=== PATIENT | male | born 1960 | race Caucasian/White ===

== ENCOUNTER → 2016-10-20 | Outpatient (CLI) | payer OTHER ==
--- NOTE | ~2016-10-20 | EKG ---
PATIENT: RK AMSSEY UNIT #: [id number] Ventricular Rate: 53 BPM Atrial Rate: 53 BPM P-R Interval: 142 ms QRS Duration: 86 ms Q-T Interval: 468 ms QTC Calculation(Bezet): 439 ms P Jewell: 52 degrees Calculated R Jewell: -46 degrees Calculated T Jewell: 37 degrees Diagnosis Line: Sinus bradycardia Diagnosis Line: Possible Left atrial enlargement Diagnosis Line: Left axis deviation Diagnosis Line: Pulmonary disease pattern Diagnosis Line: RSR' or QR pattern in V1 suggests right Diagnosis Line: ventricular conduction delay Diagnosis Line: Abnormal ECG Diagnosis Line: No previous ECGs available Diagnosis Line: Confirmed by ANTHONY BECKMAN MD ([id number]) on Diagnosis Line: 10/21/2016 1:59:56 PM INTERPRETING MD: RK BARRERA
--- NOTE | ~2016-10-20 | CR63 ---
[facility] A Service of [facility] & [facility] RADIOLOGY TEXT RESULTS PATIENT: RK MASSEY LOCATION: [facility] : 58 UNIT #: [id number] AGE: [address]: Shalini Villareal MD SEX: M ORDER DR: [id number] [facility] [address] [place], [place] [address] [id number] O MR#: [id number] Acc #: [id number] NAME: RK MASSEY : 1960 SEX: M STUDY DATE/TIME: 10/20/2016 13:17 UNIT: [facility] ROOM: STUDY DESCRIPTION: CR Chest 2 View Attending Physician: Shalini Villareal M.D. Referring Physician: Shalini Villareal M.D. Ordering Physician: Shalini Villareal M.D. Primary Care Physician: Shalini Villareal M.D. MEDICAL IMAGING REPORT This report is preliminary unless electronic signature is present EXAM PA and lateral chest INDICATIONS Acute peripheral edema, lower leg swelling and edema four days. FINDINGS A PA and lateral view of the chest were obtained. The heart size and vascularity are normal and lungs are clear. There are sternal wires present. IMPRESSION No active disease. Dictated by... Naren Benitez M.D. THIS IS AN ELECTRONICALLY VERIFIED REPORT Naren Benitez M.D. at 10/20/2016 3:55 PM FEL/tamara TD: 10/20/2016 15:50 JOB #: [id number] MEDICAL IMAGING REPORT Page 1 of 1 COPY
[2016-10-20 13:20] LABS: BASOPHIL% 0.5 % (0-2.5); EOSINOPHIL# 0.1 X10e3 (0-0.7); HEMATOCRIT 39.7 % (38.0-50.0); HEMOGLOBIN 12.9 gm/dL (13.0-16.0); LYMPHOCYTE# 1.3 X10e3 (1.0-3.5); LYMPHOCYTE% 26.3 % (17.0-45.0); MEAN CELL VOLUME 97.7 FL (83-96); MEAN CORPUSCULAR HEMOGLOBIN 31.9 PG (28-34); MEAN CORPUSCULAR HGB CONC 32.6 g/dL (30-36); MONOCYTE# 0.5 X10e3 (0-1.0); MONOCYTE% 9.9 % (3.0-12.0); NEUTROPHIL# 3.1 X10e3 (1.5-7.1); NEUTROPHIL% 61.3 % (40-75); PLATELET COUNT 205 X10e3 (140-420); RED BLOOD COUNT 4.06 X10e (3.90-5.60); RED CELL DISTRIBUTION WIDTH 13.1 % (11.0-15.5); WHITE BLOOD COUNT 5.1 X10e3 (4.0-10.5)
[2016-10-20 13:23] LABS: DIFF IND NO
[2016-10-20 13:54] LABS: ALBUMIN SERUM 4.1 g/dL (3.5-5.0); BILIRUBIN,TOTAL 0.8 mg/dL (0.2-2.0); BUN/CREATININE RATIO 21.25; CREATININE SERUM 0.8 mg/dL (0.6-1.4); GLOM FILT RATE Estimated 99.2 mL/min (>60); POTASSIUM 3.8 mmol/L (3.5-5.1); PROTEIN TOTAL SERUM 6.7 g/dL (6.0-8.3)
[2016-10-20 14:12] LABS: %MB 2.1 % (0.0-4.0); MB 2.9 ng/ml
== END | disposition home or self-care (01) ==
LOC: CLAB 11:57
PROVIDERS: Family Medicine
DX: R60.0 Localized edema (principal); R13.10 Dysphagia, unspecified
CPT/HCPCS: 36415; 71020; 80053; 82140; 82550; 82553; 83880; 84484; 85025; 85379; 93005